=== PATIENT | male | born 1980 | race Two or more races ===

== ENCOUNTER 2016-12-01 23:24 | Emergency (ER) | payer OTHER ==
[~2016-12-01] VITALS: Ht 170.2 cm; Wt 96.3 kg
[2016-12-01 23:25] VITALS: BP 146/96
[2016-12-01] MEDS ORDERED: MULT-500 PO (23:56)
[2016-12-02] MEDS ORDERED: LIDOCAINE 1%, 20ML INFIL ONE
[2016-12-02] MEDS ORDERED: LIDOCAINE 1%, 20ML ONE (00:43)
== END 2016-12-02 01:12 | disposition home or self-care (01) ==
LOC: ED 23:59
DX: S01.01XA Laceration without foreign body of scalp, initial encounter (principal); X93.XXXA Assault by handgun discharge, initial encounter; Y93.89 Activity, other specified; Y99.8 Other external cause status; Y92.488 Other paved roadways as the place of occurrence of the external cause
CPT/HCPCS: 70450; 71010; 99284